=== PATIENT | female | born 1940 | race Caucasian/White ===

== ENCOUNTER 2022-11-24 11:52 | Inpatient (IN) | payer MEDICARE ==
[~2022-11-24] VITALS: Ht 152.4 cm; Wt 36.3 kg
[2022-11-24] MEDS ORDERED: VANCOMYCIN 1 GM in IV D5W 250 ML IV ONE (12:30)
[2022-11-24] MEDS ORDERED: GENTAMICIN 80 MG in IV D5W 50 ML IV ONE (12:30)
[2022-11-24] MEDS ORDERED: ASPI-1169 PO (12:37)
[2022-11-24] MEDS ORDERED: LEVO50TA8 PO (12:37)
[2022-11-24] MEDS ORDERED: FAMO40TA7 PO (12:37)
[2022-11-24] MEDS ORDERED: ASCO-340 PO (12:37)
[2022-11-24] MEDS ORDERED: PRAV80TA21 PO (12:37)
[2022-11-24] MEDS ORDERED: POLY119P3 PO (12:37)
[2022-11-24] MEDS ORDERED: HYDR500C2 PO ×2 (12:37)
[2022-11-24] MEDS ORDERED: CHOL100043 PO (12:37)
[2022-11-24] MEDS ORDERED: ANAS1TAB50 PO (12:37)
[2022-11-24 13:00] LABS: BASOPHILS % (AUTO) 0.9 % (0.0-2.0); EOSINOPHILS # (AUTO) 0.1 K/uL (0.0-0.7); EOSINOPHILS % (AUTO) 2.7 % (0.0-6.0); HEMATOCRIT 35 % (33-45); HEMOGLOBIN 11.9 g/dL (11.5-14.8); LYMPHOCYTES # (AUTO) 0.8 K/uL (0.8-4.8); LYMPHOCYTES % (AUTO) 16.4 % (20.0-44.0); MEAN CORPUSCULAR HEMOGLOBIN 38 PG (26.0-33.0); MEAN CORPUSCULAR HGB CONC 34 g/dl (31.0-36.0); MEAN CORPUSCULAR VOLUME 114 fL (82-100); MONOCYTES # (AUTO) 0.3 K/uL (0.1-1.30); MONOCYTES % (AUTO) 5.4 % (2.0-12.0); NEUTROPHILS # (AUTO) 3.5 K/uL (1.8-8.9); NEUTROPHILS % (AUTO) 74.6 % (43.0-81.0); PLATELET COUNT (AUTO) 210 K/uL (150-450); RED BLOOD CELL COUNT(AUTO) 3.11 MIL/uL (4.0-5.2); RED CELL DISTRIBUTION WIDTH 13.9 % (11.5-15.0); WHITE BLOOD COUNT (AUTO) 4.7 K/uL (4.3-11.0)
[2022-11-24 13:08] LABS: CALCIUM, SERUM 8.6 mg/dL (8.5-10.1); CARBON DIOXIDE 27 mmol/L (21-32); CHLORIDE 101 mmol/L (98-107); CREATININE 0.8 mg/dL (0.6-1.3); GLUCOSE 88 mg/dL (74-106); POTASSIUM 3.5 mmol/L (3.5-5.1); SODIUM SERUM 137 mmol/L (136-145); UREA NITROGEN, BLOOD 18 mg/dL (7-18)
[2022-11-24 13:14] LABS: INR 1.09 (0.91-1.10); PARTIAL THROMBOPLASTIN TIME 28.1 SEC (24.3-34.3); PROTHROMBIN TIME 11.4 SECS (9.2-11.1)
[2022-11-24 13:15] LABS: ALANINE AMINOTRANSFERASE 31 U/L (12-78); ALBUMIN 3.6 g/dL (3.4-5.0); ALKALINE PHOSPHATASE 121 U/L (46-116); ASPARTATE AMINOTRANSFERASE 26 U/L (15-37); BILIRUBIN,DIRECT 0.3 mg/dL (0.0-0.2); TOTAL PROTEIN, SERUM 7.3 g/dL (6.4-8.2)
[2022-11-24 13:17] LABS: LACTIC ACID 1.9 mmol/L (0.4-2.0)
[2022-11-24] MEDS ORDERED: MAGNESIUM HYDROXIDE 30 ML UDC PO PRN (13:30)
[2022-11-24] MEDS ORDERED: Z GUARD REMEDY 4 OZ OINT TP PRN (13:30)
[2022-11-24] MEDS ORDERED: ONDANSETRON HCL/PF 4 MG/2 ML VIAL IVP PRN (13:30)
[2022-11-24] MEDS ORDERED: MAG HYDROX/AL HYDROX/SIMETH 30 ML UDC PO PRN (13:30)
[2022-11-24] MEDS ORDERED: ACETAMINOPHEN 325 MG TABLET PO PRN (13:30)
[2022-11-24 14:08] LABS: APPEARANCE,URINE CLEAR (CLEAR); BILIRUBIN,URINE NEGATIVE (NEGATIVE); BLOOD, URINE NEGATIVE Ery/uL (NEGATIVE); COLOR,URINE YELLOW (YELLOW); KETONES,URINE NEGATIVE (NEGATIVE); LEUKOCYTE ESTERASE ,URINE NEGATIVE (NEGATIVE); NITRITE, URINE NEGATIVE (NEGATIVE); PH,URINE 6.5 (5.0-8.0); PROTEIN,URINE NEGATIVE (NEGATIVE); UGLUCOSE NEGATIVE (NEGATIVE); UROBILINOGEN,URINE 0.2 EU/dL (0.2)
[2022-11-24] MEDS: HYDROXYUREA 500 MG CAPSULE PO SCH ×2 (15:00→18:14)
[2022-11-24 18:00] VITALS: BP 155/78; TEMP 98; O2SAT 96
[2022-11-24] MEDS: ASCORBIC ACID 500 MG TABLET PO SCH (18:14)
[2022-11-24 20:00] VITALS: BP_SYST 114; BP_SYST 144; BP_DIAS 51; BP_DIAS 61; TEMP 97.1; TEMP 97.6; O2SAT 99
[2022-11-24] MEDS: IV NS 0.9% 1,000 ML IV PRN (20:07)
[2022-11-24] MEDS: HYDROCORTISONE 1% CREAM 28.35 GM TUBE TP SCH (21:00)
[2022-11-24] MEDS: POLYETHYLENE GLYCOL 3350 17 GM POWD.PACK PO SCH ×2 (22:00→22:14)
[2022-11-25] MEDS: VANCOMYCIN 500 MG in IV D5W 100 ML IV SCH ×2 (02:17→13:40)
[2022-11-25 07:09] LABS: CALCIUM, SERUM 8.4 mg/dL (8.5-10.1); CARBON DIOXIDE 23 mmol/L (21-32); CHLORIDE 104 mmol/L (98-107); CREATININE 0.6 mg/dL (0.6-1.3); GLUCOSE 93 mg/dL (74-106); MAGNESIUM 2.3 mg/dL (1.8-2.4); PHOSPHORUS 3.4 mg/dL (2.5-4.9); POTASSIUM 3.6 mmol/L (3.5-5.1); SODIUM SERUM 136 mmol/L (136-145); UREA NITROGEN, BLOOD 21 mg/dL (7-18)
[2022-11-25 07:57] LABS: CHOLESTEROL 119 mg/dL (<200); HDL CHOLESTEROL 66 mg/dL (40-60); LDL 44 mg/dL (0-99); THYROID STIMULATING HORMONE 4.514 uIU/mL (0.358-3.74); TRIGLYCERIDES 48 mg/dL (30-150)
[2022-11-25 08:00] VITALS: BP 112/68; TEMP 98; O2SAT 100
[2022-11-25] MEDS: ASPIRIN 81 MG TAB.CHEW PO SCH (08:21)
[2022-11-25] MEDS: ASCORBIC ACID 500 MG TABLET PO SCH ×2 (08:21→16:09)
[2022-11-25] MEDS: ATORVASTATIN 10 MG TABLET PO SCH (08:21)
[2022-11-25] MEDS: CHOLECALCIFEROL 1,000 UNIT TABLET (VIT D3) PO SCH (08:21)
[2022-11-25] MEDS: FAMOTIDINE (20 MG) 20 MG TABLET PO SCH (08:21)
[2022-11-25] MEDS: LEVOTHYROXINE SODIUM 50 MCG TABLET PO SCH (08:21)
[2022-11-25] MEDS: HYDROCORTISONE 1% CREAM 28.35 GM TUBE TP SCH ×2 (08:22→16:10)
[2022-11-25 08:23] LABS: BASOPHILS % (AUTO) 0.2 % (0.0-2.0); EOSINOPHILS # (AUTO) 0.1 K/uL (0.0-0.7); EOSINOPHILS % (AUTO) 2.8 % (0.0-6.0); HEMATOCRIT 37 % (33-45); HEMOGLOBIN 12.9 g/dL (11.5-14.8); LYMPHOCYTES # (AUTO) 0.9 K/uL (0.8-4.8); LYMPHOCYTES % (AUTO) 21.6 % (20.0-44.0); MEAN CORPUSCULAR HEMOGLOBIN 39 PG (26.0-33.0); MEAN CORPUSCULAR HGB CONC 34 g/dl (31.0-36.0); MEAN CORPUSCULAR VOLUME 113 fL (82-100); MONOCYTES # (AUTO) 0.2 K/uL (0.1-1.30); MONOCYTES % (AUTO) 5.3 % (2.0-12.0); NEUTROPHILS # (AUTO) 2.8 K/uL (1.8-8.9); NEUTROPHILS % (AUTO) 70.1 % (43.0-81.0); PLATELET COUNT (AUTO) 234 K/uL (150-450); RED CELL DISTRIBUTION WIDTH 13.7 % (11.5-15.0)
[2022-11-25] MEDS: ANASTROZOLE 1 MG TABLET PO SCH (09:41)
[2022-11-25] MEDS: GENTAMICIN 80 MG in IV D5W 50 ML IV SCH (11:48)
[2022-11-25] MEDS: HYDROXYUREA 500 MG CAPSULE PO SCH (14:25)
[2022-11-25 16:00] VITALS: BP 129/61; TEMP 98.9; O2SAT 98
[2022-11-25] MEDS: ENSURE ENLIVE 237 ML LIQUID (VANILLA) PO SCH (17:02)
[2022-11-25 20:54] VITALS: BP 114/65; TEMP 98.8; O2SAT 98
[2022-11-25] MEDS: DOXYCYCLINE HYCLATE (100 MG) 100 MG TABLET PO SCH (21:21)
[2022-11-26] MEDS: VANCOMYCIN 500 MG in IV D5W 100 ML IV SCH ×2 (02:45→14:42)
[2022-11-26 06:43] LABS: CARBON DIOXIDE 14 mmol/L (21-32); CHLORIDE 123 mmol/L (98-107); CREATININE 0.3 mg/dL (0.6-1.3); UREA NITROGEN, BLOOD 10 mg/dL (7-18)
[2022-11-26 07:13] LABS: SODIUM SERUM 145 mmol/L (136-145)
[2022-11-26 07:35] LABS: CALCIUM, SERUM 4.3 mg/dL (8.5-10.1); GLUCOSE 44 mg/dL (74-106); POTASSIUM 1.6 mmol/L (3.5-5.1)
[2022-11-26 08:00] VITALS: BP 142/62; TEMP 98.4; O2SAT 100
[2022-11-26] MEDS: ANASTROZOLE 1 MG TABLET PO SCH (08:51)
[2022-11-26] MEDS: FAMOTIDINE (20 MG) 20 MG TABLET PO SCH (08:52)
[2022-11-26] MEDS: ATORVASTATIN 10 MG TABLET PO SCH (08:52)
[2022-11-26] MEDS: CHOLECALCIFEROL 1,000 UNIT TABLET (VIT D3) PO SCH (08:52)
[2022-11-26] MEDS: ASPIRIN 81 MG TAB.CHEW PO SCH (08:53)
[2022-11-26] MEDS: ASCORBIC ACID 500 MG TABLET PO SCH ×2 (08:53→17:07)
[2022-11-26] MEDS: LEVOTHYROXINE SODIUM 50 MCG TABLET PO SCH (08:53)
[2022-11-26] MEDS: DOXYCYCLINE HYCLATE (100 MG) 100 MG TABLET PO SCH ×2 (08:53→22:47)
[2022-11-26] MEDS: ENSURE ENLIVE 237 ML LIQUID (VANILLA) PO SCH ×3 (08:54→17:08)
[2022-11-26] MEDS: HYDROCORTISONE 1% CREAM 28.35 GM TUBE TP SCH ×2 (08:54→17:08)
[2022-11-26 09:18] LABS: ALBUMIN 3.3 g/dL (3.4-5.0); BILIRUBIN,TOTAL 1.5 mg/dL (0.2-1.0); CALCIUM, SERUM 8.5 mg/dL (8.5-10.1); CREATININE 0.7 mg/dL (0.6-1.3); POTASSIUM 3.7 mmol/L (3.5-5.1); TOTAL PROTEIN, SERUM 6.9 g/dL (6.4-8.2)
[2022-11-26 12:22] LABS: BASOPHILS % (AUTO) 0.4 % (0.0-2.0); EOSINOPHILS # (AUTO) 0.1 K/uL (0.0-0.7); EOSINOPHILS % (AUTO) 2.2 % (0.0-6.0); HEMATOCRIT 36 % (33-45); HEMOGLOBIN 12.1 g/dL (11.5-14.8); LYMPHOCYTES # (AUTO) 0.8 K/uL (0.8-4.8); LYMPHOCYTES % (AUTO) 18.2 % (20.0-44.0); MEAN CORPUSCULAR HEMOGLOBIN 39 PG (26.0-33.0); MEAN CORPUSCULAR HGB CONC 34 g/dl (31.0-36.0); MEAN CORPUSCULAR VOLUME 116 fL (82-100); MONOCYTES # (AUTO) 0.2 K/uL (0.1-1.30); MONOCYTES % (AUTO) 4.6 % (2.0-12.0); NEUTROPHILS # (AUTO) 3.4 K/uL (1.8-8.9); NEUTROPHILS % (AUTO) 74.6 % (43.0-81.0); PLATELET COUNT (AUTO) 240 K/uL (150-450); RED BLOOD CELL COUNT(AUTO) 3.13 MIL/uL (4.0-5.2); RED CELL DISTRIBUTION WIDTH 14.5 % (11.5-15.0); WHITE BLOOD COUNT (AUTO) 4.6 K/uL (4.3-11.0)
[2022-11-26] MEDS: GENTAMICIN 80 MG in IV D5W 50 ML IV SCH (12:45)
[2022-11-26] MEDS: IV NS 0.9% 1,000 ML IV PRN (13:44)
[2022-11-26] MEDS: HYDROXYUREA 500 MG CAPSULE PO SCH (15:26)
[2022-11-26 15:50] VITALS: BP 113/53; TEMP 98.7; O2SAT 98
[2022-11-26 20:00] VITALS: BP 130/64; TEMP 97.8; O2SAT 99
[2022-11-26] MEDS: POLYETHYLENE GLYCOL 3350 17 GM POWD.PACK PO SCH (22:47)
[2022-11-27] MEDS: VANCOMYCIN 500 MG in IV D5W 100 ML IV SCH ×2 (02:14→13:41)
[2022-11-27] MEDS: IV NS 0.9% 1,000 ML IV PRN ×2 (04:18→23:03)
[2022-11-27 07:00] VITALS: BP 127/58; TEMP 97.4; O2SAT 97
[2022-11-27] MEDS: LEVOTHYROXINE SODIUM 50 MCG TABLET PO SCH (07:58)
[2022-11-27] MEDS: ENSURE ENLIVE 237 ML LIQUID (VANILLA) PO SCH ×3 (08:57→16:34)
[2022-11-27] MEDS: CHOLECALCIFEROL 1,000 UNIT TABLET (VIT D3) PO SCH (08:57)
[2022-11-27] MEDS: ASPIRIN 81 MG TAB.CHEW PO SCH (08:58)
[2022-11-27] MEDS: ASCORBIC ACID 500 MG TABLET PO SCH ×2 (08:58→16:34)
[2022-11-27] MEDS: ATORVASTATIN 10 MG TABLET PO SCH (08:58)
[2022-11-27] MEDS: DOXYCYCLINE HYCLATE (100 MG) 100 MG TABLET PO SCH (08:58)
[2022-11-27] MEDS: FAMOTIDINE (20 MG) 20 MG TABLET PO SCH (08:58)
[2022-11-27] MEDS: ANASTROZOLE 1 MG TABLET PO SCH (09:27)
[2022-11-27] MEDS: HYDROCORTISONE 1% CREAM 28.35 GM TUBE TP SCH ×2 (09:33→16:34)
[2022-11-27 09:43] LABS: CREATININE 0.8 mg/dL (0.6-1.3); POTASSIUM 3.8 mmol/L (3.5-5.1)
[2022-11-27] MEDS: GENTAMICIN 80 MG in IV D5W 50 ML IV SCH (12:04)
[2022-11-27 16:00] VITALS: BP 136/62; TEMP 98; O2SAT 96
[2022-11-27] MEDS: HYDROXYUREA 500 MG CAPSULE PO SCH (16:34)
[2022-11-27] MEDS: LINEZOLID 600 MG TABLET PO SCH (20:33)
[2022-11-27 21:16] VITALS: BP 123/65; TEMP 98.2; O2SAT 97
[2022-11-28 06:51] LABS: CALCIUM, SERUM 7.1 mg/dL (8.5-10.1); CREATININE 0.6 mg/dL (0.6-1.3)
[2022-11-28 07:00] VITALS: BP 140/67; TEMP 97.5; O2SAT 97
[2022-11-28] MEDS ORDERED: POTASSIUM CHLORIDE 20 MEQ TAB.PRT.SR PO ONE (07:30)
[2022-11-28] MEDS: LEVOTHYROXINE SODIUM 50 MCG TABLET PO SCH (08:05)
[2022-11-28] MEDS: CHOLECALCIFEROL 1,000 UNIT TABLET (VIT D3) PO SCH (08:06)
[2022-11-28] MEDS: ENSURE ENLIVE 237 ML LIQUID (VANILLA) PO SCH ×3 (08:06→17:05)
[2022-11-28] MEDS: ASPIRIN 81 MG TAB.CHEW PO SCH (08:06)
[2022-11-28] MEDS: FAMOTIDINE (20 MG) 20 MG TABLET PO SCH (08:06)
[2022-11-28] MEDS: ASCORBIC ACID 500 MG TABLET PO SCH ×2 (08:06→17:05)
[2022-11-28] MEDS: LINEZOLID 600 MG TABLET PO SCH (08:06)
[2022-11-28] MEDS: ATORVASTATIN 10 MG TABLET PO SCH (08:06)
[2022-11-28] MEDS: ANASTROZOLE 1 MG TABLET PO SCH (08:21)
[2022-11-28] MEDS: HYDROCORTISONE 1% CREAM 28.35 GM TUBE TP SCH ×2 (08:22→16:51)
[2022-11-28] MEDS: GENTAMICIN 80 MG in IV D5W 50 ML IV SCH (12:20)
[2022-11-28] MEDS: HYDROXYUREA 500 MG CAPSULE PO SCH (15:41)
[2022-11-28 16:00] VITALS: BP 115/57; TEMP 97.6; O2SAT 96
[2022-11-30] MEDS ORDERED: HYDROXYUREA 500 MG CAPSULE PO SCH (15:00)
== END 2022-11-28 18:00 | disposition home or self-care (01) | DRG 602 ==
LOC: ER 11:58 → MED 14:06
PROVIDERS: ADMIT Nurse Practitioner Acute Care; ATTEND Internal Medicine
DX: L03.116 Cellulitis of left lower limb (principal); E43 Unspecified severe protein-calorie malnutrition; L03.115 Cellulitis of right lower limb; K21.9 Gastro-esophageal reflux disease without esophagitis; D45 Polycythemia vera; C50.919 Malignant neoplasm of unspecified site of unspecified female breast; E03.9 Hypothyroidism, unspecified; E78.5 Hyperlipidemia, unspecified; F42.9 Obsessive-compulsive disorder, unspecified; L30.9 Dermatitis, unspecified; T45.1X5A Adverse effect of antineoplastic and immunosuppressive drugs, initial encounter; Y92.009 Unspecified place in unspecified non-institutional (private) residence as the place of occurrence of the external cause; Z88.0 Allergy status to penicillin; Z79.82 Long term (current) use of aspirin; Z79.811 Long term (current) use of aromatase inhibitors; Z88.5 Allergy status to narcotic agent; Z91.041 Radiographic dye allergy status; Z79.899 Other long term (current) drug therapy; Z98.890 Other specified postprocedural states; Z79.64 Long term (current) use of myelosuppressive agent; Z90.11 Acquired absence of right breast and nipple
CPT/HCPCS: 36415; 71045-TC; 80048-TC; 80053-TC; 80061-TC; 80076-TC; 80170-TC; 80202-TC; 82962-TC; 83605-TC; 83735-TC; 84100-TC; 84443-TC; 84484-TC; 85025-TC; 85730-TC; 87040-TC; 87086-TC; 93970-TC; 97116-TC; 97530-TC; A4223; G0378; J1580; J3370; J7030; J7060